=== PATIENT | male | born 1930 | race African-American/Black ===

== ENCOUNTER → 2016-09-11 | Outpatient (CLI) | payer OTHER | LOC: HYPER 07:03 | DX: L89.623 Pressure ulcer of left heel, stage 3 (principal); L89.612 Pressure ulcer of right heel, stage 2; L89.310 Pressure ulcer of right buttock, unstageable; E11.628 Type 2 diabetes mellitus with other skin complications; E11.22 Type 2 diabetes mellitus with diabetic chronic kidney disease; I12.9 Hypertensive chronic kidney disease with stage 1 through stage 4 chronic kidney disease, or unspecified chronic kidney disease; N18.3 Chronic kidney disease, stage 3 (moderate); D50.8 Other iron deficiency anemias; M48.06 Spinal stenosis, lumbar region; K21.9 Gastro-esophageal reflux disease without esophagitis; E78.5 Hyperlipidemia, unspecified; F15.90 Other stimulant use, unspecified, uncomplicated; Z87.891 Personal history of nicotine dependence ==

== ENCOUNTER 2016-12-25 12:54 | Observation (INO) | payer OTHER ==
[~2016-12-25] VITALS: Ht 188 cm; Wt 91.8 kg
--- NOTE | ~2016-12-25 | HC ---
[facility] [address] [place] [address] CONSULTATION Name: PEDRO WADE Room #: [facility]..#: [id number] Admission: 12/25/16 Attend Phys: Adama Sam MD Discharge: Date of : 32 Report #: [id number] THIS REPORT FOR: //name// CC: Adama Salmeron DATE OF SERVICE: 12/26/2016 PERSONAL PHYSICIAN: ____. CHIEF COMPLAINT: Bilateral heel ulcers. HISTORY OF PRESENT ILLNESS: This is an elderly black male who is currently a resident at [facility] who was admitted to the hospital after he had syncopal episode at [facility]. The patient has been seen in our clinic twice back in September for decubitus ulcers on his heels and a sacrococcygeal ulcer as well. The patient states that the sacrococcygeal ulcer has resolved, but he still has the heel ulcerations which he thinks he is getting better. The patient resides denies any other associated open ulcerations at this time. We have been asked to follow these ulcerations while he is here. PAST MEDICAL HISTORY: Significant for diabetes, hyperlipidemia, atrial fibrillation, hypertension. CURRENT MEDICATIONS: Multiple, I reviewed the patient's medical list. DRUG ALLERGIES: None. SOCIAL HISTORY: The patient resides in a care facility. Denies alcohol or tobacco use. FAMILY HISTORY: Not pertinent to current medical condition. REVIEW OF SYSTEMS: Essentially unobtainable because of the patient's moderately demented state. PHYSICAL EXAMINATION: VITAL SIGNS: Stable. The patient is afebrile. GENERAL: This is alert and oriented x 1 person, but not to place or time, elderly black male who is in no acute distress. HEENT: Normocephalic, atraumatic. Mucous membranes are dry. Pupils are round. Sclerae are white. NECK: Supple, without lymphadenopathy or JVD. BACK: Nontender. LUNGS: Clear. HEART: Irregularly irregular with 2/6 systolic ejection murmur. [facility] [address] [place] [address] CONSULTATION Name: PEDRO WADE Room #: [address] [place] [address] M.R.#: [id number] Admission: 12/25/16 Attend Phys: Adama Sam MD Discharge: Date of : 32 Report #: [id number] ABDOMEN: Obese, soft, otherwise nontender, without organomegaly. EXTREMITIES: Evaluation of sacrococcygeal and gluteal area reveals a resolved ulceration in the left gluteal region, but no other signs of any open ulcerations noted. EXTREMITIES: The patient moves all extremities without difficulty. Evaluation of bilateral heels reveals stage 3 decubitus ulcerations, which are clean and granulating. There is minimal amount of slough noted on each of the ulcerations. There is serous drainage noted without odor. Periulcer is intact without signs of erythema, warmth or cellulitis. There is no tunneling, tracking or undermining. There is no involvement of deeper structures. The patient has 1+ dorsalis pedis and posterior tibial pulses bilaterally. NEUROLOGIC: Cranial nerves 2-12 grossly. Motor and sensory grossly intact. LABORATORY DATA: White count 7.2, hemoglobin 8.3. BUN 33, creatinine 2.1. IMPRESSION: 1. Bilateral stage 3 decubitus ulcers to the heels, present on admission. 2. History of syncope, workup undergoing. 3. Diabetes. 4. Parkinson disease. 5. Generalized debility. PLAN: At this time, last clinic visit, we had actually ordered arterial Dopplers be performed; however, these were never done. We will order arterial Dopplers at this point in time to ensure the patient has adequate blood flow to the heels for healing. If the arterial Dopplers are abnormal, we will consult Dr. Darian Taylor for further evaluation and possible acute intervention if necessary. We will make sure we maximize the patient's oral supplementation of protein for healing per his renal diet. We will start Maxorb AG to the bilateral heels, cover with ABD and Kerlix, have these changed Thursday, Thursday and Thursday. We will use heel protection boots to keep heels protected at all times while in bed. We will use barrier cream on his gluteal area for protection. Maximize the physical and occupational therapy if the patient can tolerate for strengthening. I appreciate the ability to consult on this patient. We will continue to follow him. By: 1321 00 Mina Patton MD /nt
--- NOTE | ~2016-12-25 | H ---
[facility] [place] [address] [place] [address] HISTORY AND PHYSICAL Name: PEDRO WADE Room #: 437-P [facility] M.R.#: [id number] Admission: 12/25/16 Attend Phys: Adama Sam MD Discharge: Date of : 32 Report #: [id number] THIS REPORT FOR: //name// CC: Adama Rowepamelaartur DATE OF SERVICE: 12/25/2016 CHIEF COMPLAINT: Syncope. Note, history is somewhat limited as the patient suffers from parkinsonism and is a poor historian and is also obtained from the ER physicians. HISTORY OF PRESENT ILLNESS: The patient is an 86-year-old gentleman presently residing at [facility] and who usually follows at [facility]. He was sitting in his wheelchair when he apparently passed out and when asked about this, the patient remembers this event and reports he was feeling dizzy when awakened. He did not lose a pulse however, and was not noted to have any seizure activity. When he is seen by me right now, he feels he is feeling close to his baseline. He denies chest pain, fevers, chills, nausea, vomiting, diarrhea, dizziness, headaches, or other problems. He only reports that he has been feeling a little bit of a tugging/burning sensation related to his suprapubic catheter, which he reports was placed approximately 2 months prior at [facility]. He has not noticed any hematuria. He denies any numbness or weakness in any extremities. He is being admitted for further workup of this event at this present time. PAST MEDICAL HISTORY: Includes: 1. Diabetes. 2. Hyperlipidemia. 3. Atrial fibrillation. 4. Hypertension. FAMILY HISTORY: Unable to obtain. SOCIAL HISTORY: Lives at [facility], not able to obtain any other social history. MEDICATIONS: Refer to med rec, presently not updated. ALLERGIES: No known drug allergies. REVIEW OF SYSTEMS: Twelve-point review of systems attempted, limited by the patient poor history, otherwise negative except as mentioned in history of present illness. [facility] [address] [place] [address] HISTORY AND PHYSICAL Name: PEDRO WADE Room #: 437-P [facility]#: [id number] Admission: 12/25/16 Attend Phys: Adama Sam MD Discharge: Date of : 32 Report #: [id number] PHYSICAL EXAMINATION: VITAL SIGNS: Afebrile, pulse of 84, respiratory rate 16, blood pressure 118/64, O2 sat 97 on nasal cannula. GENERAL: Awake, alert ____ masked facies. HEENT: No facial droop. Pupils equal and reactive. CARDIOVASCULAR: S1 and S2 present, regular. RESPIRATORY: Air entry present bilaterally. ABDOMEN: Obese, soft, and nontender. GENITOURINARY: Suprapubic catheter in place with somewhat cloudy urine as well as slight purulence at the exit site. EXTREMITIES: Without edema. NEUROLOGIC: Awake, alert. No obvious focal findings. SKIN: Otherwise, unremarkable. LABS AND INVESTIGATIONS: CBC notable for anemia of 9.3. No leukocytosis, platelets within normal range, eosinophil count elevated at 19.1%. Chemistry with elevated potassium of 5.7, BUN and creatinine elevated at 34 and 2.1, glucose is elevated at 126. Urinalysis with cloudy urine with positive nitrites and leukocyte esterase and many WBCs. ASSESSMENT AND PLAN: This is an 86-year-old gentleman with a suprapubic catheter, presented with a syncopal episode. 1. Syncope, possibly may represent an early infection/UTI. At the present time, we will start him on broad-spectrum Rocephin and follow the results of his urine culture and he has also been started on IV fluid hydration. 2. Acute renal failure in the setting of chronic kidney disease. Hydrate and assess for improvement. 3. Diabetes. Resume home Lantus and sliding scale coverage. 4. Atrial fibrillation appears rate controlled, does not appear to be on anticoagulation. 5. Parkinson's. Resume his Sinemet. 6. Anemia, unclear chronicity, monitor. No obvious bleeding source at the present. 7. Eosinophilia, possibly in light of suprapubic catheter, no obvious rash or other inflammatory etiology noted. 8. Syncope. We will also obtain carotid Dopplers and an echocardiogram for further evaluation and PT, OT evaluation for this patient. 9. DVT prophylaxis with low dose Lovenox. <ELECTRONICALLY SIGNED> By: Adama Sam MD 12/26/16 1218 1556 1625 Adama Sam MD /nt
--- NOTE | ~2016-12-25 | 2DMMODE ---
[facility] [address] [place] [address] 2 D/M-MODE ECHOCARDIOGRAM Name: PEDRO WADE Room #: 437-P ADM IN M.R.#: [id number] Admission: 12/25/16 Attend Phys: Adama Sam, Discharge: Date of : 32 Date of Service: 12/26/16 1013 Report #: [id number] THIS REPORT FOR: //name// APPROVED REPORT Study performed: 12/26/2016 09:03:08 EXAM: Comprehensive 2D, Doppler, and color-flow Echocardiogram Patient Location: Bedside Room #: 437 Status: routine BSA: 2.09 HR: 92 bpm BP: 134/77 mmHg Rhythm: NSR Other Information Study Quality: Adequate/Limited mobility Indications Syncope. Hx: DM, HTN, HLP, Afib 2D Dimensions RVDd: 38.14 mm LVEF(%): 49.18 (>50%) IVSd: 11.90 (7-11mm) LVOT Diam: 23.27 (18-24mm) LVDd: 40.47 mm PWd: 10.37 (7-11mm) Ascending Ao: 39.82 (22-36mm) LVDs: 30.54 (25-40mm) Aortic Root: 39.85 mm Nathan's LVEF: 49.18 % Volumes Left Atrial Volume (Systole) Single Plane 4CH: 49.78 mL Single Plane 2CH: 34.05 mL LA ESV Index: 23.00 mL/m2 Aortic Valve AoV Peak Umang.: 2.20 m/s AO Peak Gr.: 19.33 mmHg LVOT Max P.67 mmHg AO Mean Gr.: 11.17 mmHg AO V2 Mean: 1.60 m/s LVOT Max V: 0.96 m/s AO V2 VTI: 45.95 cm ROBBIE Vmax: 1.85 cm2 Mitral Valve [facility] [place] [address] 2 D/M-MODE ECHOCARDIOGRAM Name: GLEN WADEELL Room #: 437-P [facility] IN .R.#: [id number] Admission: 12/25/16 Attend Phys: Adama Sam, Discharge: Date of : 32 Date of Service: 12/26/16 1013 Report #: [id number] E/A Ratio: 0.5 MV Decel. Time: 245.34 ms MV E Max Umang.: 0.59 m/s MV A Umang.: 1.19 m/s MV PHT: 71.15 ms IVRT: 83.04 ms Pulmonary Valve PV Peak Umang.: 1.08 m/s PV Peak Gr.: 4.64 mmHg Pulmonary Vein P Vein S: 0.70 m/s P Vein A: 0.36 m/s P Vein D: 0.36 m/s P Vein S/D Ratio: 1.94 Left Ventricle The left ventricle is normal size. Mild basal septal hypertrophy is present. Left ventricular systolic function is normal. LVEF is 55-60%. Mild diastolic dysfunction is present (impaired relaxation pattern). Right Ventricle The right ventricle is normal size. The right ventricular systolic function is normal. Atria The left atrium size is normal. The right atrium size is normal. Aortic Valve Aortic valve is moderately calcified. Trace aortic regurgitation. There is mild valvular aortic stenosis. Calculated aortic valve area is 1.9 cm2 with maximum pressure gradient of 19 mmHg and mean pressure gradient of 12 mmHg. Mitral Valve Mitral valve leaflets are thickened and calcified. Trace mitral regurgitation. Tricuspid Valve The tricuspid valve is normal in structure. There is no tricuspid valve regurgitation noted. Pulmonic Valve The pulmonary valve is normal in structure. Mild pulmonic regurgitation. [address] [address] 2 D/M-MODE ECHOCARDIOGRAM Name: PEDRO WADE Room #: 437-P ADM IN .R.#: [id number] Admission: 12/25/16 Attend Phys: Adama Sam, Discharge: Date of : 32 Date of Service: 12/26/16 1013 Report #: [id number] Great Vessels Aortic root is mildly dilated at 4.0cm The ascending aorta is mildly dilated at 4.0cm The inferior vena cava is not visualized. Pericardium There is no pericardial effusion. <Conclusion> The left ventricle is normal size. Left ventricular systolic function is normal. LVEF is 55-60%. Aortic valve is moderately calcified. Trace aortic regurgitation. There is mild valvular aortic stenosis. Calculated aortic valve area is 1.9 cm2 with maximum pressure gradient of 19 mmHg and mean pressure gradient of 12 mmHg. Mitral valve leaflets are thickened and calcified. Trace mitral regurgitation. The tricuspid valve is normal in structure. The pulmonary valve is normal in structure. Mild pulmonic regurgitation. Aortic root is mildly dilated at 4.0cm The ascending aorta is mildly dilated at 4.0cm <ELECTRONICALLY SIGNED> By: Jose Tovar MD 12/26/16 1013 1013 1013 Jose Tovar MD /INF
--- NOTE | ~2016-12-25 | EKG ---
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
[2016-12-25 12:55] VITALS: BP 132/64
[2016-12-25 13:22] LABS: ABSOLUTE NEUTROPHILS 3.9 thou/uL (1.4-8.2); BASOPHILS 0.7 % (0.0-2.0); EOSINOPHILS 19.1 % (0.0-3.0); HEMATOCRIT 29.4 % (42.0-52.0); HEMOGLOBIN 9.3 gm/dL (14.0-18.0); LYMPHOCYTES 25.2 % (24.0-44.0); MCH 27.5 pg (26.0-34.0); MCHC 31.8 g/dL (28.0-37.0); MCV 86.3 fL (80.0-100.0); MONOCYTES 7.3 % (1.0-8.0); PLATELET COUNT 235 thou/uL (150-400); POLYS 47.7 % (36.0-66.0); RDW 16.7 % (10.5-14.5); WBC 8.1 thou/uL (4.0-11.0)
[2016-12-25 13:23] LABS: MANUAL DIFF NO
[2016-12-25 13:26] LABS: ANION GAP 9 mmol/L (7-16); BUN 34 mg/dL (7-18); CALCIUM 9.2 mg/dL (8.5-10.1); CHLORIDE 105 mmol/L (98-107); CO2 24 mmol/L (21-32); CREATININE 2.1 mg/dL (0.7-1.3); GLUCOSE 126 mg/dL (74-106); SODIUM 138 mmol/L (136-145)
[2016-12-25 13:27] LABS: POTASSIUM 5.7 mmol/L (3.5-5.1)
[2016-12-25 13:34] LABS: TROPONIN-I < 0.04 ng/mL (<0.04-0.07)
[2016-12-25] MEDS ORDERED: ASPIR 8181 MG PO (13:38)
[2016-12-25] MEDS ORDERED: VITAMIN C500 M1 PO (13:38)
[2016-12-25] MEDS ORDERED: LANTUS100 UNIT/M SUBQ (13:39)
[2016-12-25] MEDS ORDERED: VITAMIN D1000 UNI1 PO (13:39)
[2016-12-25] MEDS ORDERED: GABAPENTIN 100100 MG PO (13:39)
[2016-12-25] MEDS ORDERED: ATORVASTATIN CA40 MG PO (13:39)
[2016-12-25] MEDS ORDERED: PROTONIX40 M1 PO (13:40)
[2016-12-25] MEDS ORDERED: MIRALAX255 GM PO (13:40)
[2016-12-25] MEDS ORDERED: SENNA8.6 MG PO (13:41)
[2016-12-25] MEDS ORDERED: UNICOMPLEX M TA1 TA1 PO (13:41)
[2016-12-25] MEDS ORDERED: DUONEB 2.5-0.5 M3 ML INH (13:42)
[2016-12-25] MEDS ORDERED: LISINOPRIL2.5 MG PO (13:44)
[2016-12-25] MEDS ORDERED: BACITRACIN-POL3.5 GM OP (13:44)
[2016-12-25] MEDS ORDERED: COREG3.125 MG PO (13:45)
[2016-12-25] MEDS ORDERED: JUVEN PACKET1 EACH PO (13:45)
[2016-12-25] MEDS ORDERED: FEOSOL325 M1 PO (13:45)
[2016-12-25] MEDS ORDERED: TYLENOL325 MG PO (13:46)
[2016-12-25] MEDS ORDERED: CARBIDOPA-LEVO1 EAC9 PO (13:46)
[2016-12-25 15:03] LABS: URINE BILIRUBIN NEGATIVE (Negative); URINE BLOOD 2+ (Negative); URINE COLOR YELLOW; URINE GLUCOSE-RANDOM* NEGATIVE (Negative); URINE KETONES NEGATIVE (Negative); URINE LEUKOCYTES-REFLEX 2+ (Negative); URINE PROTEIN (DIPSTICK) 1+ (Negative); URINE SPECIFIC GRAVITY 1.025 (1.003-1.035); URINE UROBILINOGEN 0.2 E.U./dl (0.2-1.0)
[2016-12-25 15:15] LABS: CASTS None Seen /LPF (None Seen); CRYSTALS None Seen /LPF (None Seen); SQUAMOUS 0-3 Few /LPF (0-3); URINE RBC 3-10 Few /HPF (0-2)
[2016-12-25 15:16] LABS: URINE WBC-REFLEX >25 Many /HPF (0-5)
[2016-12-25 15:48] VITALS: BP 118/64
[2016-12-25 16:28] VITALS: BP 139/78
[2016-12-25 22:47] VITALS: BP 139/70
[2016-12-26 03:48] VITALS: BP 134/77
[2016-12-26 06:03] LABS: HEMATOCRIT 25.4 % (42.0-52.0); HEMOGLOBIN 8.3 gm/dL (14.0-18.0); MCH 28.3 pg (26.0-34.0); MCHC 32.7 g/dL (28.0-37.0); MCV 86.5 fL (80.0-100.0); RBC 2.93 mil/uL (4.50-6.00); RDW 16.9 % (10.5-14.5); WBC 7.2 thou/uL (4.0-11.0)
[2016-12-26 06:13] LABS: CALCIUM 8.5 mg/dL (8.5-10.1); CREATININE 2.1 mg/dL (0.7-1.3); POTASSIUM 4.9 mmol/L (3.5-5.1)
[2016-12-26 08:00] VITALS: BP 113/50
[2016-12-26 16:00] VITALS: BP 140/73
[2016-12-26 20:17] VITALS: BP 137/73
[2016-12-27 05:12] LABS: HEMATOCRIT 23.5 % (42.0-52.0); HEMOGLOBIN 7.8 gm/dL (14.0-18.0); MCH 28.4 pg (26.0-34.0); MCHC 33.2 g/dL (28.0-37.0); MCV 85.6 fL (80.0-100.0); RBC 2.75 mil/uL (4.50-6.00); RDW 16.8 % (10.5-14.5); WBC 6.8 thou/uL (4.0-11.0)
[2016-12-27 05:13] LABS: CALCIUM 8.6 mg/dL (8.5-10.1); POTASSIUM 4.7 mmol/L (3.5-5.1)
[2016-12-27 05:18] VITALS: BP 129/63
[2016-12-27 08:39] VITALS: BP 123/65
[2016-12-27 16:29] VITALS: BP 139/81
[2016-12-27 20:27] VITALS: BP 148/73
[2016-12-28 04:22] VITALS: BP 144/72
[2016-12-28 04:52] LABS: CALCIUM 8.6 mg/dL (8.5-10.1); POTASSIUM 4.5 mmol/L (3.5-5.1)
[2016-12-28 08:31] VITALS: BP 150/72
[2016-12-28 16:29] VITALS: BP 141/82
[2016-12-28 19:47] VITALS: BP 147/71
[2016-12-29 03:44] VITALS: BP 150/79
[2016-12-29 06:19] LABS: ABSOLUTE NEUTROPHILS 4.3 thou/uL (1.4-8.2); BASOPHILS 0.6 % (0.0-2.0); EOSINOPHILS 19.5 % (0.0-3.0); HEMATOCRIT 27.5 % (42.0-52.0); HEMOGLOBIN 9.1 gm/dL (14.0-18.0); LYMPHOCYTES 19.3 % (24.0-44.0); MANUAL DIFF NO; MCH 28.1 pg (26.0-34.0); MCHC 33.2 g/dL (28.0-37.0); MCV 84.7 fL (80.0-100.0); MONOCYTES 8.1 % (1.0-8.0); PLATELET COUNT 211 thou/uL (150-400); POLYS 52.5 % (36.0-66.0); RBC 3.25 mil/uL (4.50-6.00); RDW 16.7 % (10.5-14.5); WBC 8.3 thou/uL (4.0-11.0)
[2016-12-29 06:29] LABS: CALCIUM 8.7 mg/dL (8.5-10.1); POTASSIUM 4.7 mmol/L (3.5-5.1)
[2016-12-29 08:00] VITALS: BP 163/87
[2016-12-29] MEDS ORDERED: CEFUROXIME500 MG PO (12:33)
== END 2016-12-29 17:18 | disposition short-term general hospital (02) ==
LOC: ER 12:54 → EROBS 14:59 → 4S 15:53
PROVIDERS: Emergency Medicine; Hospitalist; Internal Medicine Endocrinology, Diabetes & Metabolism
DX: R55 Syncope and collapse (principal); N17.9 Acute kidney failure, unspecified; I48.91 Unspecified atrial fibrillation; G20 Parkinson's disease; D72.1 Eosinophilia; E78.5 Hyperlipidemia, unspecified; D64.9 Anemia, unspecified; I12.9 Hypertensive chronic kidney disease with stage 1 through stage 4 chronic kidney disease, or unspecified chronic kidney disease; E11.22 Type 2 diabetes mellitus with diabetic chronic kidney disease; N18.9 Chronic kidney disease, unspecified

== ENCOUNTER 2017-01-01 11:37 | Emergency (ER) | payer OTHER ==
[~2017-01-01] VITALS: Ht 188 cm; Wt 80.3 kg
--- NOTE | ~2017-01-01 | EKG ---
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 : 1930 Requested By: Skyler Wilks Order Number: [id number] MD: Jimmy Hameed Measurements Intervals [place] Rate: 79 P: 43 KS: 155 QRS: 25 QRSD: 102 T: 41 QT: 402 QTc: 461 Interpretive Statements Sinus rhythm Inferior infarct, old Compared to ECG 12/25/2016 13:00:32 Inferior Q waves are slightly more prominent Electronically Signed On 01-02-2017 8:34:53 CDT by Jimmy Hameed [email or web address] <ELECTRONICALLY SIGNED> By: Jimmy Hameed MD, [facility] 01/02/17 0834 1234 1234 Jimmy Hameed MD, [facility] /EPI
[~2017-01-01 11:37] MED LIST: ASPIR 8181 MG PO; ATORVASTATIN CA40 MG PO; BACITRACIN-POL3.5 GM OP; CARBIDOPA-LEVO1 EAC9 PO; CEFUROXIME500 MG PO; COREG3.125 MG PO; DUONEB 2.5-0.5 M3 ML INH; FEOSOL325 M1 PO; GABAPENTIN 100100 MG PO; JUVEN PACKET1 EACH PO; LANTUS100 UNIT/M SUBQ; LISINOPRIL2.5 MG PO; MIRALAX255 GM PO; PROTONIX40 M1 PO; SENNA8.6 MG PO; TYLENOL325 MG PO; UNICOMPLEX M TA1 TA1 PO; VITAMIN C500 M1 PO; VITAMIN D1000 UNI1 PO
[2017-01-01 12:27] LABS: HEMATOCRIT 27.3 % (42.0-52.0); HEMOGLOBIN 8.9 gm/dL (14.0-18.0); MCH 28.1 pg (26.0-34.0); MCHC 32.6 g/dL (28.0-37.0); MCV 86.1 fL (80.0-100.0); RBC 3.18 mil/uL (4.50-6.00); RDW 16.8 % (10.5-14.5); WBC 7.3 thou/uL (4.0-11.0)
[2017-01-01 12:36] LABS: ANION GAP 10 mmol/L (7-16); BUN 38 mg/dL (7-18); CALCIUM 8.7 mg/dL (8.5-10.1); CHLORIDE 108 mmol/L (98-107); CO2 22 mmol/L (21-32); GLUCOSE 119 mg/dL (74-106); POTASSIUM 5.2 mmol/L (3.5-5.1)
[2017-01-01 12:39] LABS: SODIUM 140 mmol/L (136-145)
[2017-01-01 12:43] LABS: PROTIME 10.5 Seconds (9.3-11.4)
[2017-01-01 12:45] LABS: TROPONIN-I < 0.04 ng/mL (<0.04-0.07)
== END 2017-01-01 16:00 | disposition home or self-care (01) ==
LOC: ER 11:37
PROVIDERS: Emergency Medicine
DX: R55 Syncope and collapse (principal)